=== PATIENT | female | born 1990 | race Caucasian/White ===

== ENCOUNTER 2019-06-11 11:45 | Observation (INO) | payer MEDICAID ==
[~2019-06-11] VITALS: Ht 152.4 cm; Wt 67.6 kg
[2019-06-11 12:22] VITALS: BP 126/76
[2019-06-11] MEDS ORDERED: PREN-380 PO (12:28)
== END 2019-06-11 13:00 | disposition home or self-care (01) ==
LOC: MLD 11:45
PROVIDERS: ADMIT Obstetrics & Gynecology; ATTEND Obstetrics & Gynecology
DX: O24.410 Gestational diabetes mellitus in pregnancy, diet controlled (principal); O34.43 Maternal care for other abnormalities of cervix, third trimester; O36.8230 Fetal anemia and thrombocytopenia, third trimester, not applicable or unspecified; Z3A.34 34 weeks gestation of pregnancy
CPT/HCPCS: 59025; 81000; G0378

== ENCOUNTER 2019-06-18 14:53 | Observation (INO) | payer MEDICAID ==
[~2019-06-18] VITALS: Ht 152.4 cm; Wt 67.6 kg
[~2019-06-18 14:53] MED LIST: PREN-380 PO
[2019-06-18 15:30] VITALS: BP 125/78
== END 2019-06-18 16:10 | disposition home or self-care (01) ==
LOC: MLD 14:53
PROVIDERS: ADMIT Obstetrics & Gynecology; ATTEND Obstetrics & Gynecology
DX: O24.419 Gestational diabetes mellitus in pregnancy, unspecified control (principal); O36.8230 Fetal anemia and thrombocytopenia, third trimester, not applicable or unspecified; Z3A.36 36 weeks gestation of pregnancy; Z79.899 Other long term (current) drug therapy
CPT/HCPCS: 59025; 81000; 87086; G0378

== ENCOUNTER 2019-06-21 09:26 | Observation (INO) | payer MEDICAID ==
[~2019-06-21] VITALS: Ht 152.4 cm; Wt 66.7 kg
[2019-06-21 09:30] VITALS: BP 121/78
== END 2019-06-21 10:50 | disposition home or self-care (01) ==
LOC: MLD 09:26
PROVIDERS: ADMIT Obstetrics & Gynecology; ATTEND Obstetrics & Gynecology
DX: O36.8130 Decreased fetal movements, third trimester, not applicable or unspecified (principal); O99.333 Smoking (tobacco) complicating pregnancy, third trimester; F17.200 Nicotine dependence, unspecified, uncomplicated; Z3A.36 36 weeks gestation of pregnancy
CPT/HCPCS: 81000; G0378

== ENCOUNTER 2019-07-03 22:39 | Inpatient (IN) | payer BC, MEDICAID ==
[~2019-07-03] VITALS: Ht 149.9 cm; Wt 68.9 kg
[2019-07-03] MEDS ORDERED: LACTATED RINGERS 1,000 ML IV SCH (23:18)
[2019-07-03] MEDS ORDERED: METHYLERGONOVINE 0.2 MG/ML AMP IM PRN (23:20)
[2019-07-03] MEDS ORDERED: LACTATED RINGERS 500 ML IV ONE (23:20)
[2019-07-03] MEDS ORDERED: PROMETHAZINE 25 MG/ML VIAL IVP PRN (23:20)
[2019-07-03] MEDS ORDERED: OXYTOCIN 20 UNITS in LACTATED RINGERS 1,000 ML IV SCH (23:25)
[2019-07-03 23:38] LABS: BASOPHILS # (AUTO) 0.1 K/uL (0.00-0.22); BASOPHILS % (AUTO) 0.5 % (0.0-2.0); EOSINOPHILS # (AUTO) 0.1 K/uL (0-0.4); EOSINOPHILS % (AUTO) 0.9 % (0.0-4.0); HEMATOCRIT 39.8 % (36-48); HEMOGLOBIN 12.9 g/dL (12.0-16.0); LYMPHOCYTES # (AUTO) 2.1 K/uL (2.5-16.5); LYMPHOCYTES % (AUTO) 19.8 % (20.5-51.1); MEAN CORPUSCULAR HEMOGLOBIN 26 pg (27-31); MEAN CORPUSCULAR HGB CONC 32 g/dL (33-37); MEAN CORPUSCULAR VOLUME 78.7 fL (80-94); MONOCYTES # (AUTO) 0.8 K/uL (0.8-1.0); MONOCYTES % (AUTO) 7.3 % (1.7-9.3); NEUTROPHILS # (AUTO) 7.5 K/uL (1.8-7.7); NEUTROPHILS % (AUTO) 71.5 % (42.2-75.2); PLATELET COUNT (AUTO) 104 K/uL (140-450); RED BLOOD CELL COUNT(AUTO) 5.05 MIL/uL (4.20-5.40); RED CELL DISTRIBUTION WIDTH 14.1 % (11.6-13.7); WHITE BLOOD COUNT (AUTO) 10.5 K/uL (4.8-10.8)
[2019-07-03 23:40] LABS: APPEARANCE,URINE SL CLOUDY (CLEAR); BILIRUBIN,URINE NEGATIVE (NEGATIVE); BLOOD, URINE 1+ (NEGATIVE); COLOR,URINE YELLOW (YELLOW); LEUKOCYTE ESTERASE ,URINE NEGATIVE (NEGATIVE); NITRITE, URINE NEGATIVE (NEGATIVE); UGLUCOSE NEGATIVE (NEGATIVE)
[2019-07-03 23:54] LABS: ALBUMIN 2.6 g/dL (3.4-5.0); ANION GAP 16.9 (8-16); CARBON DIOXIDE 21.9 mmol/L (21-32); CREATININE 0.6 mg/dL (0.6-1.3); POTASSIUM 3.8 mmol/L (3.5-5.1); TOTAL BILIRUBIN 0.2 mg/dL (0.0-1.0)
[2019-07-04] MEDS ORDERED: OXYTOCIN 20 UNITS/LR PREMIX 1,000 ML IV ONE (01:01)
[2019-07-04 02:02] LABS: WBC,URINE 0-5 /HPF (0-5)
[2019-07-04] MEDS: BLOOD GLUCOSE MONITORING 1 DEV DEV FS SCH ×2 (02:34→04:13)
[2019-07-04] MEDS ORDERED: AMPICILLIN 2,000 MG VIAL ONE (06:18)
[2019-07-04] MEDS ORDERED: AMPICILLIN 2,000 MG in NACL 0.9% 100 ML IV SCH (06:30)
--- NOTE | 2019-07-04 08:15 | NUR ---
PATIENT HAS BEEN SCREENED AND CATEGORIZED MODERATE NUTRITION RISK. PATIENT WILL BE SEEN WITHIN 3-5 DAYS OF ADMISSION. 07/06/19 07/08/[address]
[2019-07-04] MEDS: NALBUPHINE 10 MG/ML AMP IVP PRN ×2 (09:23→13:17)
[2019-07-04] MEDS ORDERED: DEXAMETHASONE 4 MG/ML VIAL IVP PRN (10:30)
[2019-07-04 11:38] LABS: BASOPHILS % (AUTO) 0.2 % (0.0-2.0); EOSINOPHILS % (AUTO) 0.1 % (0.0-4.0); HEMATOCRIT 38.4 % (36-48); HEMOGLOBIN 12.4 g/dL (12.0-16.0); LYMPHOCYTES # (AUTO) 1.3 K/uL (2.5-16.5); MEAN CORPUSCULAR HEMOGLOBIN 25 pg (27-31); MEAN CORPUSCULAR HGB CONC 32 g/dL (33-37); MEAN CORPUSCULAR VOLUME 78.6 fL (80-94); MONOCYTES # (AUTO) 0.7 K/uL (0.8-1.0); MONOCYTES % (AUTO) 4.5 % (1.7-9.3); NEUTROPHILS # (AUTO) 12.7 K/uL (1.8-7.7); NEUTROPHILS % (AUTO) 86.2 % (42.2-75.2); PLATELET COUNT (AUTO) 88 K/uL (140-450); RED BLOOD CELL COUNT(AUTO) 4.89 MIL/uL (4.20-5.40)
[2019-07-04 12:05] LABS: WHITE BLOOD COUNT (AUTO) 14.8 K/uL (4.8-10.8)
[2019-07-04] MEDS ORDERED: LIDOCAINE MPF 1% 10 MG/ML VIAL INJ SCH (12:45)
[2019-07-04] MEDS ORDERED: LIDOCAINE 1% 500 MG/50 ML VIAL ONE (13:26)
[2019-07-04] MEDS ORDERED: DEXAMETHASONE 10 MG/ML VIAL IVP PRN (16:53)
[2019-07-04] MEDS ORDERED: METHYLERGONOVINE 0.2 MG/ML AMP IM PRN (17:50)
[2019-07-04] MEDS ORDERED: MEASLES, MUMPS, AND RUBELLA 1 VIAL SQVAC PRN (17:50)
[2019-07-04] MEDS ORDERED: OXYTOCIN 10 UNITS/ML VIAL IM PRN (17:50)
[2019-07-04] MEDS ORDERED: METHYLERGONOVINE 0.2 MG TAB PO PRN (17:50)
[2019-07-04] MEDS ORDERED: BENZOCAINE/MENTHOL 20%-0.5% 60 GM CAN TP PRN (17:50)
[2019-07-04 20:34] LABS: BASOPHILS % (AUTO) 0.1 % (0.0-2.0); HEMOGLOBIN 11.6 g/dL (12.0-16.0); LYMPHOCYTES # (AUTO) 0.8 K/uL (2.5-16.5); LYMPHOCYTES % (AUTO) 4.6 % (20.5-51.1); MEAN CORPUSCULAR HEMOGLOBIN 25 pg (27-31); MEAN CORPUSCULAR HGB CONC 32 g/dL (33-37); MONOCYTES # (AUTO) 0.8 K/uL (0.8-1.0); MONOCYTES % (AUTO) 4.6 % (1.7-9.3); NEUTROPHILS # (AUTO) 15.8 K/uL (1.8-7.7); NEUTROPHILS % (AUTO) 90.7 % (42.2-75.2); PLATELET COUNT (AUTO) 98 K/uL (140-450); RED BLOOD CELL COUNT(AUTO) 4.61 MIL/uL (4.20-5.40); RED CELL DISTRIBUTION WIDTH 14.1 % (11.6-13.7); WHITE BLOOD COUNT (AUTO) 17.4 K/uL (4.8-10.8)
[2019-07-04] MEDS: IBUPROFEN 800 MG TAB PO PRN (23:09)
[2019-07-05 06:54] LABS: ANION GAP 13.1 (8-16); CARBON DIOXIDE 24.5 mmol/L (21-32); CREATININE 0.6 mg/dL (0.6-1.3); POTASSIUM 3.6 mmol/L (3.5-5.1)
[2019-07-05 07:47] LABS: BASOPHILS % (AUTO) 0.3 % (0.0-2.0); EOSINOPHILS % (AUTO) 0.1 % (0.0-4.0); HEMATOCRIT 30.5 % (36-48); HEMOGLOBIN 10.1 g/dL (12.0-16.0); LYMPHOCYTES # (AUTO) 2.7 K/uL (2.5-16.5); LYMPHOCYTES % (AUTO) 22.4 % (20.5-51.1); MEAN CORPUSCULAR HEMOGLOBIN 26 pg (27-31); MEAN CORPUSCULAR HGB CONC 33 g/dL (33-37); MEAN CORPUSCULAR VOLUME 78.6 fL (80-94); MONOCYTES # (AUTO) 1.2 K/uL (0.8-1.0); MONOCYTES % (AUTO) 9.8 % (1.7-9.3); NEUTROPHILS % (AUTO) 67.4 % (42.2-75.2); PLATELET COUNT (AUTO) 88 K/uL (140-450); RED BLOOD CELL COUNT(AUTO) 3.88 MIL/uL (4.20-5.40); RED CELL DISTRIBUTION WIDTH 14.2 % (11.6-13.7); WHITE BLOOD COUNT (AUTO) 11.9 K/uL (4.8-10.8)
[2019-07-05] MEDS: IBUPROFEN 800 MG TAB PO PRN (20:33)
[2019-07-06] MEDS ORDERED: INFLUENZA VACCINE QUAD 0.5 ML SYR IMVAC PRN (08:00)
== END 2019-07-06 11:55 | disposition home or self-care (01) | DRG 806 ==
LOC: MLD 22:39 → MFCC 07-04 21:35
PROVIDERS: ADMIT Obstetrics & Gynecology; ATTEND Obstetrics & Gynecology
PROC: 0KQM0ZZ Repair Perineum Muscle, Open Approach (ICD-10-PCS; principal; 2019-07-03)
PROC: 10E0XZZ Delivery of Products of Conception, External Approach (ICD-10-PCS; 2019-07-03)
PROC: 3E0234Z Introduction of Serum, Toxoid and Vaccine into Muscle, Percutaneous Approach (ICD-10-PCS; 2019-07-03)
DX: O24.429 Gestational diabetes mellitus in childbirth, unspecified control (principal); O99.12 Other diseases of the blood and blood-forming organs and certain disorders involving the immune mechanism complicating childbirth; Z37.0 Single live birth; D69.3 Immune thrombocytopenic purpura; O70.1 Second degree perineal laceration during delivery; Z3A.38 38 weeks gestation of pregnancy; Z23 Encounter for immunization
CPT/HCPCS: 36415; 59409; 80048; 80053; 81001; 82948; 85025; 85049; 86592; 86886; 86900; 86901; 87086; 90715; C1758; J0290; J1100; J2001; J2210; J2300; J2550; J2590; J7120